=== PATIENT | female | born 1990 | race Caucasian/White ===

== ENCOUNTER 2017-05-22 23:35 | Emergency (ER) | payer OTHER ==
[~2017-05-22] VITALS: Ht 162.6 cm; Wt 47.3 kg
[~2017-05-22 23:35] MED LIST: DEPO-PROVER150 MG/ML IM; Motrin PO
[2017-05-22 23:56] LABS: HEMATOCRIT 48.1 % (36.0-46.0); HEMOGLOBIN 16.2 G/DL (11.9-15.5); MCH 29.6 PG (29.0-34.0); MCHC 33.7 G/DL (30.0-36.0); MCV 87.9 FL (83-99); PLATELET COUNT 253 K/uL (156-360); RBC DIS.WIDTH-CV 12.8 % (11.8-14.6); RBC DIS.WIDTH-SD 41.3 % (39-53); RED BLOOD COUNT 5.47 M/uL (3.80-5.20); WHITE BLOOD COUNT 8.9 K/uL (4.1-10.2)
[2017-05-23 00:04] LABS: ALBUMIN 4.2 g/dL (3.2-4.8)
[2017-05-23 00:05] LABS: CHLORIDE 107 mEq/L (99-109); POTASSIUM 3.8 mEq/L (3.7-5.4); SODIUM 138 mEq/L (136-147)
[2017-05-23 00:07] LABS: GLUCOSE 97 mg/dL (70-99); TOTAL PROTEIN 7.1 g/dL (6.4-8.3)
[2017-05-23 00:09] LABS: TOTAL BILIRUBIN 1.1 mg/dL (0.0-1.0)
[2017-05-23 00:10] LABS: ALKALINE PHOSPHATASE 54 IU/L (3-129)
[2017-05-23 00:11] LABS: CREATININE 0.8 mg/dL (0.6-1.3); GFR ESTIMATE (CALCULATED) > 59 mL/min/
[2017-05-23 00:11] LABS: APPEARANCE SL.HAZY ((CLEAR)); BILIRUBIN NEGATIVE; BLOOD SMALL; COLOR YELLOW ((YELLOW)); GLUCOSE (STRIP) NEGATIVE; KETONES NEGATIVE; LEUKOCYTES SMALL; NITRITE NEGATIVE; PROTEIN (STRIP) NEGATIVE; SPECIFIC GRAVITY 1.027 (1.000-1.030)
[2017-05-23 00:12] LABS: AST (GOT) 13 IU/L (2-34); UREA NITROGEN (BUN) 11 mg/dL (9-23)
[2017-05-23 00:13] LABS: ALT (GPT) 11 IU/L (3-49)
[2017-05-23 00:14] LABS: LIPASE 25 U/L (1.0-51.0)
[2017-05-23 00:17] LABS: BACTERIA RARE /HPF; EPITHELIAL CELLS 2+ /HPF; MUCUS 1+ /LPF; UCUL ADDED? NO; WHITE BLOOD CELLS 0-5 /HPF (0-5)
[2017-05-23 00:19] LABS: QUANTITATIVE HCG < 4.0 MIU/ML
[2017-05-23] MEDS ORDERED: CITRATE OF MAG296 ML PO (01:49)
[2017-05-23 02:04] VITALS: BP 126/71
== END 2017-05-23 02:04 | disposition home or self-care (01) ==
LOC: EME 23:35
DX: R10.9 Unspecified abdominal pain (principal); F41.9 Anxiety disorder, unspecified; F32.9 Major depressive disorder, single episode, unspecified
CPT/HCPCS: 74019; 80053; 81003; 83690; 84702; 85027; 99281; 99284